=== PATIENT | female | born 1960 | race American Indian/Alaskan Native ===

== ENCOUNTER 2018-11-27 17:38 | Emergency (ER) | payer SELFPAY ==
[2018-11-27] MEDS ORDERED: DOPamine/D5W 800 MG/250 ML 800 MG/250 ML BAG IV ONE (18:05)
[2018-11-27] MEDS ORDERED: AMIODARONE 150 MG/3 ML INJ IV ONE (18:05)
[2018-11-27] MEDS ORDERED: NORepinephrine/NS 4 MG-250 ML 4 MG/250 ML BAG IV ONE (18:07)
--- NOTE | 2018-11-27 18:27 | Emergency Department Report ---
HPI - General Chief Complaint: Cardiac Arrest/CPR Time Seen by Provider: 11/27/18 18:03 - HPI HPI: Room 21 The patient is a 4-year-old female presenting with chief complaint cardiac arrest. Per EMS they arrived on scene at the patient's home at 17:07 to find the patient unresponsive lying in bed in ventricular fibrillation. She'll phone calls were initiated the patient was intubated and defibrillated 3 times. EMS states that administer 3 rounds of epinephrine. Upon arrival to the ED the patient was found to be in PEA and ACS protocols were continued. There were brief episodes of ROSC however the patient continued to devolve into PEA. [facility] nt ED Past Medical Hx - Family History Family history: no significant - Social History Smoking Status: Unknown if ever smoked Substance Use Type: None ED Review of Systems ROS: Stated complaint: CARDIAC ARREST Other details as noted in HPI Comment: Unobtainable due to pts medical conditions Physical Exam - Physical Exam Physical Exam: GENERAL: The patient is well-developed well-nourished female lying on stretcher being bagged via ET tube and receiving chest compressions from EMS. [] HEENT: Normocephalic. Atraumatic. NECK: Supple. No meningitic signs are noted. There is no adenopathy noted. CHEST/LUNGS: No spontaneous respirations. Breath sounds equal bilaterally with bagging HEART/CARDIOVASCULAR: No heart sounds. PEA on monitor ABDOMEN: Abdomen is soft, nontender. SKIN: There is no rash. There is no diaphoresis. NEURO: GCS 3T MUSCULOSKELETAL: There is no evidence of acute injury. ED Medical Decision Making - Differential Diagnosis cardiac arrest Critical care attestation.: If time is entered above; I have spent that time in minutes in the direct care of this critically ill patient, excluding procedure time. ED Disposition Clinical Impression: Cardiac arrest Disposition: DC-20 Is pt being admited?: No Does the pt Need Aspirin: No Condition: Poor Time of Disposition: 18:24 (patient )
[2018-11-27] MEDS ORDERED: AMIODARONE 900 MG in DEXTROSE 5% IN WATER 482 ML IV SCH (19:00)
[2018-11-27] MEDS ORDERED: NORepinephrine/NS 4 MG-250 ML 4 MG/250 ML BAG IV SCH (19:00)
== END 2018-11-27 20:10 ==
LOC: ED 17:38
DX: I46.9 Cardiac arrest, cause unspecified (principal)
CPT/HCPCS: 92950; 93005; 93010; 99285; J0282; J7060